=== PATIENT | male | born 1950 | race Caucasian/White ===

== ENCOUNTER 2016-03-20 09:57 | Inpatient (IN) ==
[2016-03-20 10:27] LABS: Basophils # 0.1 10*3/uL (0.0-0.2); Basophils % 0.6 % (0.0-0.8); Hematocrit 38.4 VOL% (42.0-52.0); Hemoglobin 12.3 GM/DL (14.0-18.0); Immature Granulocytes % 6.6 %; Immature Granulocytes Absolute 0.57 #; Lymphocytes # 0.3 10*3/uL (1.4-4.0); Lymphocytes % 3.2 % (21.2-54.2); Mean Corpuscular Hemoglobin 29 PG (27-34); Mean Corpuscular Volume 89.5 FL (87-102); Mean Platelet Volume 10.4 FL (9.6-12.0); Monocytes # 0.6 10*3/uL (0.11-0.8); Monocytes % 6.4 % (1.7-12.7); Neutrophils # 7.2 10*3/uL (1.4-7.4); Neutrophils % 83.2 % (38.7-73.9); Platelet Count 101 10*3/uL (130-400); Red Blood Count 4.29 10*6/uL (3.8-5.5); Red Cell Distribution Width 14.2 % (9.3-17.3); White Blood Count 8.7 10*3/uL (4.5-13.71)
--- NOTE | 2016-03-20 10:47 | XRay Report ---
History: Fever. History of lymphoma Date: 03/20/2016 Study: Chest x-ray PA and lateral Comparison exam: No previous plain film chest x-ray available A right subclavian Mediport catheter is well-positioned. The cardiac silhouette is not enlarged. There is no mediastinal mass. The pulmonary vasculature is not engorged. There is no pleural effusion. There are scattered emphysematous changes within the lungs. The lungs are slightly hyperexpanded. There is mild platelike scar or subsegmental atelectasis in either lung base. There is no kelin consolidated infiltrate. There is osteopenia and mild thoracic spondylosis. Impression: No confluent infiltrate to suggest pneumonia. Mild platelike scar or subsegmental atelectasis in the lung bases. Chronic lung disease with scattered emphysematous changes PROCEDURE INTERPRETED AT [facility] DEPARTMENT OF RADIOLOGY Final Report Signed by: Dr. Jaki Monique
[2016-03-20 10:49] LABS: Albumin 3.1 G/DL (3.4-5.0); Bilirubin,Total 0.5 MG/DL (0.2-1.0); Calcium 8.7 MG/DL (8.5-10.1); Potassium 4.3 MMOL/L (3.5-5.1); Total Protein 7.1 G/DL (6.4-8.3)
[2016-03-20 11:06] LABS: Band Neutrophils 13 % (0-10); Lymphocytes 4 % (20-55); Metamyelocytes 1 %; Segmented Neutrophils 75 % (50-85); Total Cells Counted 100
[2016-03-20 11:07] LABS: Platelet Estimate Decreased
[2016-03-20] MEDS ORDERED: ALPRAZolam 0.25 MG TABLET PO PRN (12:12)
[2016-03-20] MEDS ORDERED: TEMAZEPAM 7.5 MG CAPSULE PO PRN (12:12)
[2016-03-20] MEDS ORDERED: PROMETHAZINE INJ 25 MG in SODIUM CHLORIDE 0.9% 50 ML IV PRN (12:12)
[2016-03-20] MEDS ORDERED: BENZTROPINE 2 MG/2 ML AMP IV PRN (12:12)
[2016-03-20] MEDS ORDERED: chlorproMAZINE 25 MG TABLET PO PRN (12:12)
[2016-03-20] MEDS ORDERED: ALUMINUM/MAGNES/SIMETH MAX STR 30 ML UDCUP PO PRN (12:12)
[2016-03-20] MEDS ORDERED: ACETAMINOPHEN 325 MG TABLET PO PRN (12:12)
[2016-03-20] MEDS ORDERED: chlorproMAZINE INJ 50 MG in SODIUM CHLORIDE 0.9% 100 ML IV PRN (12:12)
[2016-03-20] MEDS ORDERED: ONDANSETRON 4 MG/2 ML VIAL IV PRN (12:12)
[2016-03-20] MEDS ORDERED: diphenhydrAMINE CAP 25 MG CAPSULE PO PRN (12:12)
[2016-03-20] MEDS ORDERED: LACTULOSE 20 GM/30 ML UDCUP PO PRN (12:12)
[2016-03-20] MEDS ORDERED: traMADol 50 MG TABLET PO PRN (12:12)
[2016-03-20] MEDS ORDERED: guaiFENesin 200 MG/10 ML UDCUP PO PRN (12:12)
[2016-03-20] MEDS ORDERED: MYLANTA/LIDO VISC 2:1 300 ML BOTTLE SWISH/SPIT PRN (12:12)
[2016-03-20] MEDS ORDERED: LOPERAMIDE 2 MG CAPSULE PO PRN ×2 (12:12)
[2016-03-20] MEDS ORDERED: MYLANTA/LIDO VISC 2:1 300 ML BOTTLE SWISH/SWAL PRN (12:12)
[2016-03-20] MEDS ORDERED: chlorproMAZINE INJ 25 MG in SODIUM CHLORIDE 0.9% 100 ML IV PRN (12:12)
[2016-03-20] MEDS ORDERED: MAGNESIUM HYDROXIDE SUSP 30 ML UDCUP PO PRN (12:12)
--- NOTE | 2016-03-20 12:27 | Oncology History&Physical ---
History of Present Illness Chief complaint: Shaking chills and fever, possible sepsis History of present illness: Mr. 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 I had actually ordered 2 blood cultures to be done in the emergency room but they were not done. They are being done now. He has been undergoing surgical treatment in [place] by Dr. Kuhn. He recently recovered from surgical resection of his tumor and was begun on chemotherapy using methotrexate 60 mg IV on day 1 and vinblastine 6 mg and cis-[place] 140 mg IV on day 2 along with doxorubicin 60 mg IV on day 2. The chemotherapy was started February 22, 2016. It is recommended that this be repeated every 2 weeks versus 4 cycles. He had shaking chills and fever yesterday and was treated with Tylenol in spite of the fact that I have repeatedly instructed him and his to contact me if he has shaking chills and fever while on chemotherapy. In addition, the patient is effectively immunosuppressed by the fact that he has a history of follicular non-Hodgkin's lymphoma, CD20 positive, affecting the duodenum. This was diagnosed prior to the bladder cancer and he was completing chemotherapy when he was diagnosed with bladder cancer. He last received Rituxan November 03, 2015. Past medical history: Allergies: None known. Prior operations: Positive for inguinal hernia repair, positive for bladder resection with resection of the bladder December 10, 2015. He also had carpal tunnel surgery in the past. Additional medical diagnoses: Hypertension, prostate hypertrophy, hyperlipidemia , pancreatitis, Antonio's esophagus, GERD Family history: History of hypertension in several close relatives, prostate cancer in his maternal grandfather and breast cancer in his mother. Social history: He is a former smoker. ROS Gen.: He has had no prior history of recurrent fever, chills or rigors. His review of systems is entirely negative except as pertains to the present illness. Eyes: No history of chronic disease, infections or visual loss. ENT: No history of chronic infections, epistaxis, chronic sore throat Lungs: No history of asthma, emphysema, hemoptysis, chronic pleurisy or long- term or chronic infections Cardiovascular: No history of angina, coronary artery disease, congestive heart failure, cardiovascular surgery or DVT/VTE GI: He has had several brief episodes of nausea and vomiting since chemotherapy and also several brief episodes of loose stools. No GI bleeding and no prolonged nausea, vomiting or diarrhea. : See present illness Musculoskeletal: No history of chronic bone or joint pain or focal muscle atrophy or bone or joint deformity. Neurologic: No history of seizures, convulsions or paralysis. Psychiatric: No history of chronic psychiatric illness or psychiatric medications. Lymphatic: See present illness Hematologic: No history of anemia, bleeding disorders or blood dyscrasias or long-term elevation or depression white cell count or petechiae. Skin: No history of chronic skin infections or rashes or significant skin lesions. Physical examination: General: The patient appears acutely ill and somewhat debilitated. Eyes: Normal lids and conjunctivae. ENT: His pharynx is normal. His trachea is midline and he has no neck masses. Neck and thyroid.: His trachea is midline. He has no neck masses. Lungs: Breath sounds are slightly coarse without rubs, rales or rhonchi. There is symmetrical unlabored chest motion with respiration Cardiovascular: He has slight tachycardia without murmur, gallop or rub. There is no jugular venous distention, clubbing or cyanosis. Abdomen: Has had recent surgery and he has ureteral stents placed. I palpate no definite masses or ascites. Musculoskeletal: He has generalized muscle weakness and some arthritic changes in his hands but no focal muscle atrophy or bone or joint deformity. Neurologic: Cranial nerves II through XII are intact. There are no focal neurologic deficits. Nodes: I closely examined him for adenopathy. There is no submandibular, cervical, either anterior or posterior: Supraclavicular or axillary adenopathy and I cannot palpate his spleen. Skin: No significant skin lesions or rashes. His nails are normal. Psychiatric: He appears to be oriented to time, place, person and situation. Impression: Shaking and fever in a patient on active chemotherapy for bladder carcinoma with a history of immunosuppression due to non-Hodgkin's lymphoma. 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 The patient has nephrostomy tubes in place that could be source of his infection and shaking chills and fever. Home Medications Medication Instructions Recorded Confirmed Type Multivits,Ca,Min/Iron/FA/Lycop 1 each PO DAILY 03/20/16 03/20/16 History [Centrum Men's Tablet] Omeprazole [Prilosec] 20 mg PO DAILY 03/20/16 03/20/16 History Allergies Allergy/AdvReac Type Severity Reaction Status Date / Time No Known Allergies Allergy Verified 03/20/16 10:04 Medical,Surgical,& Family Hx - Medical History Renal: History of: Renal Problems Genitourinary: History of: Bladder Problem (BLADDER CANCER), Prostate Problems - Social History Smoking Status: Never smoker Frequency of Alcohol Use: None Type of Drug Use: None Exam - Constitutional Vitals: Period Temp Pulse Resp BP Sys/Jang Pulse Ox Last 24 Hr 118 18 103/77 95 Results - Labs CBC & BMP: 03/20/16 10:12 03/20/16 10:12
[2016-03-20] MEDS: DEXT 5% NACL 0.45% KCL 20 MEQ 20 MEQ/1,000 ML BAG IV SCH (13:40)
[2016-03-20] MEDS: MEROPENEM 1,000 MG in SODIUM CHLORIDE 0.9% 100 ML IV SCH (13:41)
[2016-03-20] MEDS: MULTIVITAMIN (CENTRUM) TABLET PO SCH (15:36)
[2016-03-20] MEDS: PANTOPRAZOLE 40 MG TABLET PO SCH (15:37)
[2016-03-20 16:04] LABS: Apearance,Urine CLOUDY (Clear); Bacteria,Urine Occasional /HPF (Few); Bilirubin,Urine Negative (Negative); Blood, Urine Small mg/dL (Negative); Glucose,Urine (UA) Negative (Negative); Ketones,Urine Negative (Negative); Mucus,Urine Occasional /LPF (Occasional); Nitrite,Urine Positive (Negative); Protein,Urine 100 MG/DL; RBC,Urine 51 /HPF (0-4); Squamous Epithelial Cell,Urine Occasional /HPF (0-10); Urine Color Amber (Yellow); Urine Specific Gravity 1.015 (1.001-1.035); Urine Urobilinogen < 2.0 EU/DL (0.2-1.0); WBC,Urine 191 /HPF (0-6)
[2016-03-21] MEDS: DEXT 5% NACL 0.45% KCL 20 MEQ 20 MEQ/1,000 ML BAG IV SCH ×3 (00:20→22:06)
[2016-03-21] MEDS: MEROPENEM 1,000 MG in SODIUM CHLORIDE 0.9% 100 ML IV SCH ×2 (01:13→13:18)
[2016-03-21 05:57] LABS: Basophils # 0.1 10*3/uL (0.0-0.2); Basophils % 0.6 % (0.0-0.8); Eosinophils % 0.2 % (0.00-10.9); Hematocrit 34.1 VOL% (42.0-52.0); Hemoglobin 10.9 GM/DL (14.0-18.0); Immature Granulocytes Absolute 0.79 #; Lymphocytes # 0.6 10*3/uL (1.4-4.0); Lymphocytes % 6.2 % (21.2-54.2); Mean Corpuscular Hemoglobin 29 PG (27-34); Mean Corpuscular Volume 89.5 FL (87-102); Mean Platelet Volume 10.6 FL (9.6-12.0); Monocytes # 0.7 10*3/uL (0.11-0.8); Monocytes % 6.8 % (1.7-12.7); Neutrophils # 7.7 10*3/uL (1.4-7.4); Neutrophils % 78.2 % (38.7-73.9); Platelet Count 108 10*3/uL (130-400); Red Blood Count 3.81 10*6/uL (3.8-5.5); Red Cell Distribution Width 14.2 % (9.3-17.3); White Blood Count 9.9 10*3/uL (4.5-13.71)
[2016-03-21 06:26] LABS: Albumin 2.7 G/DL (3.4-5.0); Bilirubin,Total 0.6 MG/DL (0.2-1.0); Calcium 7.9 MG/DL (8.5-10.1); Osmolality,Calculated 287.1 MOS/KG (273-304); Potassium 4.1 MMOL/L (3.5-5.1); Total Protein 5.8 G/DL (6.4-8.3)
[2016-03-21 06:28] LABS: Band Neutrophils 9 % (0-10); Elliptocytes Few; Hypochromasia Slight; Lymphocytes 7 % (20-55); Platelet Estimate Decreased; Segmented Neutrophils 78 % (50-85); Total Cells Counted 100
--- NOTE | 2016-03-21 09:12 | Oncology Progress Note ---
Oncology Subjective PN Interval history: This patient was admitted with shaking chills and fever. He had fever greater than 101 at midnight last night. He wants to go home but I told him that we need to at least wait tomorrow so that he has been afebrile for 24 hours. Part of the problem is that neither he nor his contacted me when he first had shaking chills and fever above 101. He has nephrostomy tubes in place. He is on chemotherapy that I was expecting to continue treating next week. He was begun on chemotherapy using methotrexate 60 mg IV on day 1 and vinblastine 6 mg and cis-[place] 140 mg IV on day 2 along with doxorubicin 60 mg IV on day 2. The chemotherapy was started February 22, 2016. It is recommended that this be repeated every 2 weeks versus 4 cycles. I anticipate holding chemotherapy and after week at this point and possibly adding prophylactic antibiotic coverage. He wants to go home today but I informed him that we need to wait until he is afebrile and also we need to wait to see if any infectious agents can be identified. In addition to his bladder cancer for which he is getting chemotherapy, he has a history of recently treated non-Hodgkin's lymphoma for which he received Rituxan. Exam - Constitutional Vitals: Period Temp Pulse Resp BP Sys/Jang Pulse Ox Last 24 Hr 98.4 F-101.9 F 106-117 16-20 110-140/61-87 94-99 Results - Labs CBC & BMP: 03/21/16 04:00 03/21/16 04:00 Specialty Discharge - Follow Up or Referrals - Discharge Medications No Action Multivits,Ca,Min/Iron/FA/Lycop [Centrum Men's Tablet] 1 each PO DAILY Omeprazole [Prilosec] 20 mg PO DAILY
[2016-03-21] MEDS: PANTOPRAZOLE 40 MG TABLET PO SCH (09:24)
[2016-03-21] MEDS: MULTIVITAMIN (CENTRUM) TABLET PO SCH (09:25)
[2016-03-21] MEDS: SULFAMETHOX/TRIMETHOPRIM 800-160 MG TABLET PO SCH ×2 (13:18→22:06)
[2016-03-21] MEDS ORDERED: DOXEPIN 25 MG CAPSULE PO SCH (21:00)
[2016-03-22] MEDS: MEROPENEM 1,000 MG in SODIUM CHLORIDE 0.9% 100 ML IV SCH (00:56)
[2016-03-22 05:44] LABS: Basophils % 0.4 % (0.0-0.8); Eosinophils # 0.1 10*3/uL (0.0-0.87); Hemoglobin 10.3 GM/DL (14.0-18.0); Immature Granulocytes % 7.6 %; Immature Granulocytes Absolute 0.61 #; Lymphocytes # 0.7 10*3/uL (1.4-4.0); Lymphocytes % 8.7 % (21.2-54.2); Mean Corpuscular HGB Conc 32.2 GM/DL (32-36); Mean Corpuscular Hemoglobin 29 PG (27-34); Mean Corpuscular Volume 89.4 FL (87-102); Mean Platelet Volume 10.8 FL (9.6-12.0); Monocytes # 0.6 10*3/uL (0.11-0.8); Monocytes % 7.2 % (1.7-12.7); Neutrophils % 75.1 % (38.7-73.9); Red Blood Count 3.58 10*6/uL (3.8-5.5); Red Cell Distribution Width 14.6 % (9.3-17.3)
[2016-03-22 05:49] LABS: Platelet Count 94 10*3/uL (130-400)
[2016-03-22 06:07] LABS: Band Neutrophils 16 % (0-10); Eosinophils 1 % (0-10); Hypochromasia 1+; Lymphocytes 6 % (20-55); Metamyelocytes 4 %; Platelet Estimate Decreased; Segmented Neutrophils 65 % (50-85); Total Cells Counted 100
[2016-03-22 06:19] LABS: Alanine Aminotransferase 41 U/L (16-61); Albumin 2.7 G/DL (3.4-5.0); Alkaline Phosphatase 123 U/L (45-117); Aspartate Amino Transferase 31 U/L (0-37); Bilirubin,Total < 0.39 MG/DL (0.2-1.0); Blood Urea Nitrogen 16 MG/DL (7-18); Glucose 114 MG/DL (74-106); Potassium 4.2 MMOL/L (3.5-5.1); Sodium 143 MMOL/L (136-145); Total Protein 5.5 G/DL (6.4-8.3)
--- NOTE | 2016-03-22 08:51 | Discharge Summary ---
Hospital Course - Hospital Course Hospital Course: Diagnoses: Shaking chills and fever secondary to gram-negative urinary tract infection with final identification of bacteria pending and pending and pending Percutaneous ureterostomy is with infection of indefinite significance around the ureterostomy Status post resection of transitional cell bladder cancer History of non-Hodgkin's lymphoma This 65-year-old patient with a history of bladder cancer and a history of non- Hodgkin's lymphoma was admitted with shaking chills and fever and is growing gram-negative rods in his urine and gram-positive bacteria from his ureterostomy sites. He is on chemotherapy for his bladder cancer and has had 2 courses. He has not had neutropenia or thrombocytopenia with the chemotherapy. He has tolerated it surprisingly well. However, he was having shaking chills and fever and severe weakness and prostration. In spite of the fact that I have instructed him to contact me when this occurs, he stayed home and took Tylenol and ibuprofen until I finally instructed him to come in on March 20, 2016. Admission was difficult because of disruption of the admission by the electronic medical record which denied me access to this patient's records for at least 30 minutes and probably longer. However the patient was admitted and we obtained urine cultures and we cultured the ureterostomy sites. The actual reports of the types of bacteria are still pending. The patient is afebrile and demanding to be discharged. He is a very patient at times, threatening to pull out the catheters and being less than cooperative about the treatment. I told him that the ureterostomy is would need to be removed by Dr. Kuhn. I did not have any expertise in removing them and I was not even sure that they should be removed at this point. I am discharging the patient today on 3 new medications. I am discharging him on doxepin 50-100 mg daily at bedtime. He requested this for sleep but I think that it will help his anxiety as well. He is also discharged on Bactrim DS 1 p.o. twice daily for 30 days and Cipro 500 mg p.o. twice daily for 30 days and he is given a refill on both of these prescriptions. We will arrange for him to get chemotherapy at my office next week. The chemotherapy will consist of: methotrexate 60 mg IV on day 1 vinblastine 6 mg and cis-[place] 140 mg IV on day 2 doxorubicin 60 mg IV on day 2. He should receive: Dexamethasone 10 mg IV daily before chemotherapy each day Kytril 1 mg IV daily before chemotherapy each day He will need to see me 2 weeks from now with a CBC, CMP and LDH. Specialty Discharge - Follow Up or Referrals - Discharge Medications No Action Multivits,Ca,Min/Iron/FA/Lycop [Centrum Men's Tablet] 1 each PO DAILY Omeprazole [Prilosec] 20 mg PO DAILY Discharge Plan - Discharge Data Disposition: Disch To Home/Self Care Condition at Discharge: Guarded Discharge Diet: advance to your usual diet Activity: resume usual activities as tolerated Hygiene: no restrictions Weight Bearing at Discharge: weight bear as tolerated Driving: other Contact your physician if you experience:: fever over 101, Difficulty voiding, Redness or swelling, Nausea/Vomiting, Shortness of breath, Bleeding, pain uncontrolled by pain medications - Discharge Medications Continue Omeprazole [Prilosec] 20 mg PO DAILY Discontinued Multivits,Ca,Min/Iron/FA/Lycop [Centrum Men's Tablet] 1 each PO DAILY - Follow Up or Referral - Forms/Instructions Additional Discharge Instructions: Discharge this patient today. Schedule chemotherapy for 2 days next week. He should not receive chemotherapy on Monday , it should be given before that time. CBC before chemotherapy and serum creatinine before chemotherapy. Appointment to see me in 2 weeks with CBC, CMP and LDH. Send a copy of this discharge summary to Dr. Nii Kuhn, [facility] Exam - Constitutional Vitals: Period Temp Pulse Resp BP Sys/Jang Pulse Ox Last 24 Hr 97.6 F-99.9 F 99-113 16-20 133-143/65-97 93-97 Discharge Results Procedures and tests throughout hospitalization: Pending Orders 03/20/16 Urine Culture Routine 03/20/16 17:28 Wound Culture Routine 03/23/16 04:00 Comp Blood Count Auto Diff Comprehensive Metabolic Panel 03/24/16 04:00 Comp Blood Count Auto Diff Comprehensive Metabolic Panel 03/25/16 04:00 Comp Blood Count Auto Diff Comprehensive Metabolic Panel 03/26/16 04:00 Comp Blood Count Auto Diff IN AM Comprehensive Metabolic Panel IN AM Labs on day of discharge: Labs from last 24 hours 03/22/16 03/22/16 04:00 04:00 WBC 8.0 RBC 3.58 L Hgb 10.3 L Hct 32.0 L MCV 89.4 MCH 29 MCHC 32.2 RDW 14.6 Plt Count 94 L MPV 10.8 Neut % (Auto) 75.1 H Lymph % (Auto) 8.7 L [place] % (Auto) 7.2 Eos % (Auto) 1.0 Baso % (Auto) 0.4 Neut # (Auto) 6.0 Lymph # (Auto) 0.7 L [place] # (Auto) 0.6 Eos # (Auto) 0.1 Baso # (Auto) 0.0 Total Counted 100 Immature Gran % 7.6 Nucleated RBC % 0.0 Immature Gran # 0.61 Segmented Neutrophils 65 Band Neutrophils 16 H Lymphocytes 6 L Monocytes 8 Eosinophils 1 Metamyelocytes 4 Nucleated RBCs # 0.00 Platelet Estimate Decreased Hypochromasia 1+ Sodium 143 Potassium 4.2 Chloride 107 Carbon Dioxide 25 Anion Gap 15.2 H BUN 16 Creatinine 1.40 H GFR Calculation 65 BUN/Creatinine Ratio 11.00 Glucose 114 H Calculated Osmolality 286.0 Calcium 8.0 L Total Bilirubin < 0.39 AST 31 ALT 41 Alkaline Phosphatase 123 H Total Protein 5.5 L Albumin 2.7 L Globulin 2.8 Albumin/Globulin Ratio 0.9 L Preliminary micro results at discharge 03/20/16 12:17 Blood Culture - Preliminary Blood - Mediport No growth at 1 day 03/20/16 12:16 Blood Culture - Preliminary Blood No growth at 1 day 03/20/16 Unknown Urine Culture - Preliminary Urine,Voided Gram Negative Rods 03/20/16 17:28 Wound Culture - Preliminary Back Gram Positive Cocci DS: Provider Date of admission: 03/20/16 12:12 Primary care physician: James Felipe Attending physician on admission: Martínez Torres MD Discharging clinician: Martínez Torres MD
[2016-03-22] MEDS ORDERED: HEPARIN LOCK FLUSH 500 UNIT/5 ML SYRINGE IV ONE (09:43)
[2016-03-22] MEDS: SULFAMETHOX/TRIMETHOPRIM 800-160 MG TABLET PO SCH (10:45)
[2016-03-22] MEDS: DEXT 5% NACL 0.45% KCL 20 MEQ 20 MEQ/1,000 ML BAG IV SCH (10:45)
[2016-03-22] MEDS: PANTOPRAZOLE 40 MG TABLET PO SCH (10:46)
[2016-03-22] MEDS: MULTIVITAMIN (CENTRUM) TABLET PO SCH (10:46)
[2016-03-22 10:49] VITALS: BP 151/90
== END 2016-03-22 10:00 | disposition home or self-care (01) | DRG 699 ==
LOC: N.ED 09:57 → N.EDINP 11:30 → N.4E 11:59
PROVIDERS: ADMIT Specialist; ATTEND Specialist

== ENCOUNTER 2017-04-04 17:15 | Observation (INO) ==
[2017-04-04 17:05] LABS: Basophils % 0.3 % (0.0-0.8); Eosinophils # 0.1 10*3/uL (0.0-0.87); Eosinophils % 0.4 % (0.00-10.9); Hemoglobin 12.7 GM/DL (14.0-18.0); Immature Granulocytes % 0.4 %; Immature Granulocytes Absolute 0.05 #; Lymphocytes # 0.9 10*3/uL (1.4-4.0); Lymphocytes % 6.9 % (21.2-54.2); Mean Corpuscular HGB Conc 31.8 GM/DL (32-36); Mean Corpuscular Hemoglobin 31 PG (27-34); Mean Corpuscular Volume 96.2 FL (87-102); Mean Platelet Volume 10.3 FL (9.6-12.0); Monocytes # 0.9 10*3/uL (0.11-0.8); Monocytes % 7.2 % (1.7-12.7); Neutrophils # 10.8 10*3/uL (1.4-7.4); Neutrophils % 84.8 % (38.7-73.9); Platelet Count 209 T/CUMM (130-400); Red Blood Count 4.16 MC/CUMM (3.8-5.5); Red Cell Distribution Width 13.8 % (9.3-17.3); White Blood Count 12.7 T/CUMM (4-12)
[~2017-04-04 17:15] MED LIST: BUPIVACAINE 0.25% 50 ML VIAL ONE; ceFAZolin 1,000 MG VIAL ONE
[2017-04-04 17:28] LABS: Calcium 9.1 MG/DL (8.5-10.1); Osmolality,Calculated 281.8 MOS/KG (273-304); Potassium 4.2 MMOL/L (3.5-5.1)
[2017-04-04] MEDS ORDERED: LACTATED RINGERS 1,000 ML IV SCH (17:30)
[2017-04-04] MEDS ORDERED: TISSUE ADHESIVE 1 EACH APPLICATOR TOP ONE (18:23)
[2017-04-04] MEDS ORDERED: PROPOFOL 200 MG/20 ML VIAL IV ONE (18:46)
[2017-04-04] MEDS ORDERED: MIDAZOLAM 2 MG/2 ML VIAL ONE (18:47)
[2017-04-04] MEDS ORDERED: GLYCOPYRROLATE 0.4 MG/2 ML VIAL ONE (18:47)
[2017-04-04] MEDS ORDERED: SEVOFLURANE 1 UNIT/15 MINUTE INH ONE (18:47)
[2017-04-04] MEDS ORDERED: ONDANSETRON 4 MG/2 ML VIAL ONE ×2 (18:47→19:04)
[2017-04-04] MEDS ORDERED: NEOSTIGMINE 10 MG/10 ML VIAL ONE (18:47)
[2017-04-04] MEDS ORDERED: fentaNYL 100 MCG/2 ML VIAL ONE (18:47)
[2017-04-04] MEDS ORDERED: LACTATED RINGERS 1,000 ML IV ONE ×2 (18:47→19:44)
[2017-04-04] MEDS ORDERED: ROCURONIUM 100 MG/10 ML VIAL IV ONE (18:47)
[2017-04-04] MEDS ORDERED: SUCCINYLCHOLINE 200 MG/10 ML VIAL ONE (18:47)
[2017-04-04] MEDS ORDERED: ONDANSETRON 4 MG/2 ML VIAL IV PRN ×2 (18:56→19:44)
[2017-04-04] MEDS ORDERED: HYDROmorphone 2 MG/1 ML VIAL IV PRN ×2 (18:56→19:44)
[2017-04-04] MEDS ORDERED: HYDROmorphone 2 MG/1 ML VIAL ONE (19:04)
[2017-04-04] MEDS ORDERED: PROMETHAZINE 25 MG/1 ML VIAL IM PRN (19:44)
[2017-04-04] MEDS: LACTATED RINGERS 1,000 ML IV SCH (22:28)
[2017-04-05 05:57] LABS: Basophils % 0.3 % (0.0-0.8); Eosinophils # 0.1 10*3/uL (0.0-0.87); Eosinophils % 0.4 % (0.00-10.9); Hematocrit 33.2 VOL% (42.0-52.0); Hemoglobin 10.9 GM/DL (14.0-18.0); Immature Granulocytes % 0.3 %; Immature Granulocytes Absolute 0.03 #; Lymphocytes # 0.8 10*3/uL (1.4-4.0); Lymphocytes % 6.5 % (21.2-54.2); Mean Corpuscular HGB Conc 32.8 GM/DL (32-36); Mean Corpuscular Hemoglobin 31 PG (27-34); Mean Corpuscular Volume 95.4 FL (87-102); Monocytes # 0.7 10*3/uL (0.11-0.8); Monocytes % 6.3 % (1.7-12.7); Neutrophils # 9.9 10*3/uL (1.4-7.4); Neutrophils % 86.2 % (38.7-73.9); Platelet Count 177 T/CUMM (130-400); Red Blood Count 3.48 MC/CUMM (3.8-5.5); Red Cell Distribution Width 13.5 % (9.3-17.3); White Blood Count 11.5 T/CUMM (4-12)
[2017-04-05 06:20] LABS: Band Neutrophils 4 % (0-10); Lymphocytes 17 % (20-55); Macrocytosis 1+; Platelet Estimate Normal; Segmented Neutrophils 76 % (50-85); Total Cells Counted 100
[2017-04-05 06:22] LABS: Calcium 8.2 MG/DL (8.5-10.1); Osmolality,Calculated 283.5 MOS/KG (273-304)
[2017-04-05] MEDS: LACTATED RINGERS 1,000 ML IV SCH (07:50)
[2017-04-05] MEDS ORDERED: PANTOPRAZOLE 40 MG TABLET PO SCH (09:00)
[2017-04-05 11:15] VITALS: BP 140/70
[2017-04-05] MEDS ORDERED: ENOXAPARIN 40 MG/0.4 ML SYRINGE SUBCUT SCH (12:00)
== END 2017-04-05 12:20 | disposition home or self-care (01) ==
LOC: EDSTATUS 17:15 → INTOOBSV 18:27 → N.3E 20:05
PROVIDERS: ADMIT Surgery; ATTEND Surgery

== ENCOUNTER 2017-06-15 14:13 | Observation (INO) ==
[2017-06-15] MEDS ORDERED: MORPHINE 4 MG/1 ML VIAL IV PRN (19:48)
[2017-06-15] MEDS ORDERED: ONDANSETRON 4 MG/2 ML VIAL IV PRN (19:48)
[2017-06-15] MEDS ORDERED: LEVOFLOXACIN 500 MG TABLET PO SCH (19:48)
[2017-06-15] MEDS: SODIUM CHLORIDE 0.9% 1,000 ML IV SCH (19:54)
[2017-06-15] MEDS ORDERED: LEVOFLOXACIN INJ 500 MG in PREMIX 1 EACH IV SCH (20:00)
[2017-06-15 20:19] LABS: Basophils # 0.1 10*3/uL (0.0-0.2); Basophils % 0.7 % (0.0-0.8); Eosinophils # 0.3 10*3/uL (0.0-0.87); Eosinophils % 4.3 % (0.00-10.9); Hematocrit 33.1 VOL% (42.0-52.0); Hemoglobin 10.9 GM/DL (14.0-18.0); Immature Granulocytes % 0.5 %; Immature Granulocytes Absolute 0.04 #; Lymphocytes # 1.5 10*3/uL (1.4-4.0); Lymphocytes % 20.1 % (21.2-54.2); Mean Corpuscular HGB Conc 32.9 GM/DL (32-36); Mean Corpuscular Hemoglobin 31 PG (27-34); Mean Corpuscular Volume 94.3 FL (87-102); Mean Platelet Volume 9.7 FL (9.6-12.0); Monocytes # 0.6 10*3/uL (0.11-0.8); Monocytes % 8.2 % (1.7-12.7); Neutrophils # 5.1 10*3/uL (1.4-7.4); Neutrophils % 66.2 % (38.7-73.9); Platelet Count 194 T/CUMM (130-400); Red Blood Count 3.51 MC/CUMM (3.8-5.5); Red Cell Distribution Width 14.5 % (9.3-17.3); White Blood Count 7.7 T/CUMM (4-12)
[2017-06-15 20:39] LABS: Calcium 8.4 MG/DL (8.5-10.1); Osmolality,Calculated 300.1 MOS/KG (273-304); Potassium 3.7 MMOL/L (3.5-5.1)
[2017-06-15] MEDS ORDERED: CARBIDOPA/LEVODOPA 25-100 MG TABLET PO SCH (21:00)
[2017-06-16] MEDS: SODIUM CHLORIDE 0.9% 1,000 ML IV SCH ×2 (04:46→12:40)
[2017-06-16] MEDS ORDERED: PANTOPRAZOLE 40 MG TABLET PO SCH (09:00)
[2017-06-16 11:05] VITALS: BP 119/62
[2017-06-16] MEDS ORDERED: LEVOFLOXACIN 500 MG TABLET PO ONE (11:59)
[2017-06-16] MEDS ORDERED: LEVOFLOXACIN INJ 250 MG in PREMIX 1 EACH IV SCH (20:00)
== END 2017-06-16 13:00 | disposition home or self-care (01) ==
LOC: PREOBSVTOIN 19:43 → N.5E 19:44 → INTOOBSV 19:44
PROVIDERS: ADMIT Surgery; ATTEND Surgery